=== PATIENT | female | born 1990 | race Caucasian/White ===

== ENCOUNTER 2018-06-20 07:12 | Day surgery (SDC) | payer OTHER ==
[~2018-06-20 07:12] MED LIST: CEFAZOLIN 1 GM INJ; FENTAnyl 50 MCG/ML VIAL
[2018-06-20] MEDS ORDERED: LACTATED RINGER'S 1,000 ML IV (08:00)
[2018-06-20] MEDS ORDERED: FENTAnyl 50 MCG/ML VIAL (08:41)
[2018-06-20] MEDS ORDERED: MIDAZOLAM 1 MG/ML 2 ML INJ (08:41)
[2018-06-20] MEDS ORDERED: LIDOCAINE 2% (SDV) 5 ML INJ (08:42)
[2018-06-20] MEDS ORDERED: METOCLOPRAMIDE 10 MG INJ (08:42)
[2018-06-20] MEDS ORDERED: PROPOFOL 20 ML (08:42)
[2018-06-20] MEDS ORDERED: ROPIVACAINE 0.5 % 30 ML VIAL (08:49)
[2018-06-20] MEDS ORDERED: SUCCINYLCHOLINE CHLORIDE 100 MG/5 ML SYG IV (09:45)
[2018-06-20] MEDS ORDERED: ROCURONIUM 50 MG INJ (09:45)
[2018-06-20] MEDS ORDERED: SUGAMMADEX SODIUM 200 MG/2 ML VIAL IV (09:46)
[2018-06-20] MEDS: BUPIVACAINE 0.25%/EPI (SDV) 30 ML INJ (10:14)
[2018-06-20] MEDS ORDERED: morphine 2 MG INJ IV (10:30)
[2018-06-20] MEDS ORDERED: ONDANSETRON 4 MG INJ IV ×2 (10:30→11:00)
[2018-06-20] MEDS ORDERED: HYDROmorphONE 1 MG/5 ML IV SYRINGE IV ×3 (10:38→11:00)
[2018-06-20] MEDS ORDERED: LABETALOL HCL 20MG INJ IV (11:00)
[2018-06-20] MEDS ORDERED: MEPERIDINE 25 MG INJ IV (11:00)
[2018-06-20] MEDS ORDERED: hydrALAzine 20 MG INJ IV (11:00)
[2018-06-20] MEDS ORDERED: FENTAnyl 50 MCG/ML VIAL IV ×2 (11:00)
[2018-06-20] MEDS ORDERED: IPRATROPIUM (NEB) 0.5 MG/2.5 ML AMP HHN (11:00)
[2018-06-20] MEDS ORDERED: DIPHENHYDRAMINE 50 MG INJ IV (11:00)
[2018-06-20] MEDS: HYDROmorphONE 1 MG/5 ML IV SYRINGE IV (11:15)
[2018-06-20] MEDS: OXYCODONE/ACETAMINOPHEN (5/325) TAB PO ×2 (11:25→12:11)
[2018-06-20] MEDS: KETOROLAC 30 MG INJ IV (11:26)
== END 2018-06-20 13:15 | disposition home or self-care (01) ==
LOC: SDS 07:12
DX: K80.10 Calculus of gallbladder with chronic cholecystitis without obstruction (principal); E66.01 Morbid (severe) obesity due to excess calories; Z68.42 Body mass index [BMI] 45.0-49.9, adult; I10 Essential (primary) hypertension; E11.9 Type 2 diabetes mellitus without complications; G47.30 Sleep apnea, unspecified
CPT/HCPCS: 47562; 82962; 88304

== ENCOUNTER 2018-06-23 22:01 | Inpatient (IN) | payer OTHER ==
[2018-06-23] MEDS: ACETAMINOPHEN 325 MG TAB PO (23:08)
[2018-06-23] MEDS: SOD CHLORIDE 0.9% 1,000 ML IV (23:08)
[2018-06-23] MEDS: morphine 4 MG/ML VIAL IV (23:08)
[2018-06-23] MEDS: ONDANSETRON 4 MG INJ IV (23:08)
[2018-06-23 23:17] LABS: ADD MAN DIFF? NO
[2018-06-23 23:19] LABS: ABNORMAL IP MESSAGE 1; BASOPHILS % 0.3 % (0.0-2.0); EOSINOPHILS # 0.1 10^3/ul (0.0-0.5); EOSINOPHILS % 1.1 % (0.0-7.0); IMMATURE GRANS #M 0.18 10^3/ul; IMMATURE GRANS % (M) 1.9 %; LYMPHOCYTES # 2.2 10^3/ul (0.8-2.9); LYMPHOCYTES % 23.2 % (15.0-51.0); MEAN CORPUSCULAR HEMOGLOBIN 29.2 pg (29.0-33.0); MEAN CORPUSCULAR VOLUME 91.3 fl (82.0-101.0); MEAN PLATELET VOLUME 9.9 fl (7.4-10.4); MONOCYTE # 0.6 10^3/ul (0.3-0.9); NEUTROPHIL # 6.5 10^3/ul (1.6-7.5); NEUTROPHILS % 67.5 % (39.0-77.0); NUCLEATED RED BLOOD CELLS% 0.2 /100WBC (0.0-0.0); PLATELET COUNT 266 10^3/UL (140-415); RED BLOOD COUNT 2.19 10^6/ul (4.20-5.40); RED CELL DISTRIBUTION WIDTH 13.5 % (11.5-14.5)
[2018-06-23 23:19] LABS: WHITE BLOOD COUNT 9.7 10^3/ul (4.8-10.8)
[2018-06-23 23:26] LABS: HEMOGLOBIN 6.4 g/dl (12.0-16.0); POSITIVE DIFF @See below
[2018-06-23 23:30] LABS: ADD UMIC YES; UR ASCORBIC ACID NEGATIVE (NEGATIVE); UR BACTERIA MODERATE /HPF (NONE SEEN); UR BILIRUBIN (Dip) NEGATIVE (NEGATIVE); UR BLOOD (Dip) 2+ mg/dL (NEGATIVE); UR CLARITY SLIGHTLY CLOUDY (CLEAR); UR COLOR YELLOW (YELLOW); UR GLUCOSE (Dip) NEGATIVE (NEGATIVE); UR KETONES (Dip) NEGATIVE (NEGATIVE); UR LEUKOCYTE ESTERASE (Dip) TRACE Leu/ul (NEGATIVE); UR MUCUS FEW /HPF (NONE SEEN); UR NITRITE (Dip) NEGATIVE (NEGATIVE); UR RBC 4 /HPF (0-5); UR SQUAMOUS EPITHELIAL CELL FEW /HPF (FEW); UR TOTAL PROTEIN (Dip) NEGATIVE (NEGATIVE); UR UROBILINOGEN (Dip) NEGATIVE (NEGATIVE); UR WBC 8 /HPF (0-5)
[2018-06-23 23:45] LABS: ALANINE AMINOTRANSFERASE 38 IU/L (13-69); ALBUMIN 3.3 g/dl (3.3-4.9); ALBUMIN/GLOBULIN RATIO 1.03; ALKALINE PHOSPHATASE 69 IU/L (42-121); ANION GAP 11 (8-16); ASPARTATE AMINO TRANSFERASE 31 IU/L (15-46); BILIRUBIN,INDIRECT 0.5 mg/dl (0-1.1); BILIRUBIN,TOTAL 0.5 mg/dl (0.2-1.3); BLOOD UREA NITROGEN 13 mg/dl (7-20); CALCIUM 8.8 mg/dl (8.4-10.2); CARBON DIOXIDE 25 mmol/L (21-31); CHLORIDE 104 mmol/L (97-110); GLUCOSE 101 mg/dl (70-220); INR 1.06; LIPASE 123 U/L (23-300); PARTIAL THROMBOPLASTIN TIME 25.8 Sec (25.0-35.0); POTASSIUM 3.7 mmol/L (3.5-5.1); PROTIME 13.9 Sec (11.9-14.9); PT RATIO 1.1; SODIUM 136 mmol/L (135-144); TOTAL PROTEIN 6.5 g/dl (6.1-8.1)
[2018-06-24] MEDS: morphine 2 MG INJ IV (00:07)
[2018-06-24 00:18] LABS: LACTIC ACID 2.6 mmol/L (0.5-2.0)
[2018-06-24] MEDS: SOD CHLORIDE 0.9% 100 ML (00:39)
[2018-06-24] MEDS: IOHEXOL 300MG/ML 150 ML BTL (00:39)
[2018-06-24] MEDS: SODIUM CHLORIDE 0.9% 1L BAG IV* (00:55)
[2018-06-24] MEDS: LEVOFLOXACIN 750MG/D5W (PMX) 150 ML IVPB (00:55)
[2018-06-24] MEDS: SOD CHLORIDE 0.9% 1,000 ML IV ×2 (01:10→13:39)
[2018-06-24 01:22] LABS: LACTIC ACID 1.5 mmol/L (0.5-2.0)
[2018-06-24] MEDS ORDERED: DOCUSATE SODIUM 100 MG CAP PO (01:30)
[2018-06-24] MEDS ORDERED: NACL 0.9% 3 ML SYG IV (01:30)
[2018-06-24] MEDS ORDERED: BISACODYL (EC) 5 MG TAB PO (01:30)
[2018-06-24] MEDS ORDERED: morphine 2 MG INJ IV (01:30)
[2018-06-24] MEDS: MEROPENEM 1 GM/50ML(PMX) 50 ML IVPB ×3 (02:30→13:52)
[2018-06-24] MEDS: VANCOMYCIN 1 GM (PMX) 250 ML IVPB (02:41)
[2018-06-24 03:57] LABS: LACTIC ACID 1.4 mmol/L (0.5-2.0)
[2018-06-24] MEDS ORDERED: PIPER-TAZO 3.375 GM IV (PMX) 100 ML IVPB (06:00)
[2018-06-24 06:24] LABS: ABNORMAL IP MESSAGE 1; HEMATOCRIT 18.5 % (37.0-47.0); IMMATURE GRANS #M 0.12 10^3/ul; IMMATURE GRANS % (M) 1.8 %; MEAN CORPUSCULAR HEMOGLOBIN 29.6 pg (29.0-33.0); MEAN CORPUSCULAR HGB CONC 31.9 g/dl (32.0-37.0); MEAN PLATELET VOLUME 9.5 fl (7.4-10.4); PLATELET COUNT 212 10^3/UL (140-415); RED BLOOD COUNT 1.99 10^6/ul (4.20-5.40); RED CELL DISTRIBUTION WIDTH 13.8 % (11.5-14.5)
[2018-06-24 06:24] LABS: WHITE BLOOD COUNT 6.5 10^3/ul (4.8-10.8)
[2018-06-24 06:29] LABS: POSITIVE DIFF @See below
[2018-06-24 06:32] LABS: HEMOGLOBIN 5.9 g/dl (12.0-16.0)
[2018-06-24 06:33] LABS: ADD MAN DIFF? YES; PATH REVIEW? YES
[2018-06-24 07:03] LABS: ALANINE AMINOTRANSFERASE 62 IU/L (13-69); ALBUMIN 2.6 g/dl (3.3-4.9); ALBUMIN/GLOBULIN RATIO 1.08; ALKALINE PHOSPHATASE 67 IU/L (42-121); ANION GAP 8 (8-16); ASPARTATE AMINO TRANSFERASE 87 IU/L (15-46); BILIRUBIN,INDIRECT 0.4 mg/dl (0-1.1); BILIRUBIN,TOTAL 0.4 mg/dl (0.2-1.3); BLOOD UREA NITROGEN 9 mg/dl (7-20); CALCIUM 7.7 mg/dl (8.4-10.2); CARBON DIOXIDE 23 mmol/L (21-31); CHLORIDE 113 mmol/L (97-110); CREATININE 0.69 mg/dl (0.44-1.00); GLUCOSE 88 mg/dl (70-220); POTASSIUM 3.6 mmol/L (3.5-5.1); SODIUM 140 mmol/L (135-144)
[2018-06-24 08:08] LABS: ANISOCYTOSIS 2+ (0-0); BAND NEUTROPHILS #M 0.1 10^3/ul (0.0-0.6); BAND NEUTROPHILS % (M) 2 % (0-4); EOSINOPHILS % (M) 1 % (0-7); LYMPHOCYTES #M 1.5 10^3/ul (0.8-2.9); LYMPHOCYTES % (M) 24 % (15-51); MICROCYTOSIS 1+ (0-0); MONOCYTE #M 0.1 10^3/ul (0.3-0.9); MONOCYTES % (M) 3 % (0-11); MYELOCYTES % (M) 1 % (0-0); PLATELET ESTIMATE NORMAL; POLYCHROMASIA 1+ (0-0); REACTIVE LYMPHOCYTES% (M) 1 % (0-0); SEG NEUT #M 4.4 10^3/ul (1.6-7.5); SEGMENTED NEUTROPHILS (M) % 68 % (39-77); SMUDGE%M 1 % (0-0)
[2018-06-24] MEDS: ONDANSETRON 4 MG INJ IV (09:06)
[2018-06-24 11:32] LABS: LACTIC ACID 1.1 mmol/L (0.5-2.0)
[2018-06-24] MEDS ORDERED: GLUCAGON 1 MG INJ IM (12:00)
[2018-06-24] MEDS ORDERED: DEXTROSE 50% 50 ML SYRINGE IV ×2 (12:00)
[2018-06-24] MEDS ORDERED: GLUCOSE GEL 15 GRAM TUBE PO ×2 (12:00)
[2018-06-24] MEDS ORDERED: GLUCOSE GEL 15 GRAM TUBE BUCCAL (12:00)
[2018-06-24] MEDS: FAMOTIDINE 20 MG INJ IV (13:11)
[2018-06-24] MEDS: METHYLPREDNISOLONE 125 MG INJ IV (13:11)
[2018-06-24] MEDS: DIPHENHYDRAMINE 50 MG INJ IM (13:22)
[2018-06-24] MEDS: INSULIN ASPART [NOVOLOG] 3 ML PEN SC ×3 (13:35→20:08)
[2018-06-24 13:49] LABS: ADD UMIC YES; UR ASCORBIC ACID NEGATIVE (NEGATIVE); UR BACTERIA FEW /HPF (NONE SEEN); UR BILIRUBIN (Dip) NEGATIVE (NEGATIVE); UR BLOOD (Dip) 2+ mg/dL (NEGATIVE); UR CLARITY CLEAR (CLEAR); UR COLOR STRAW (YELLOW); UR GLUCOSE (Dip) NEGATIVE (NEGATIVE); UR KETONES (Dip) NEGATIVE (NEGATIVE); UR LEUKOCYTE ESTERASE (Dip) NEGATIVE Leu/ul (NEGATIVE); UR NITRITE (Dip) NEGATIVE (NEGATIVE); UR RBC 1 /HPF (0-5); UR SPECIFIC GRAVITY (Dip) 1.015 (1.003-1.030); UR TOTAL PROTEIN (Dip) NEGATIVE (NEGATIVE); UR UROBILINOGEN (Dip) NEGATIVE (NEGATIVE); UR WBC 1 /HPF (0-5)
[2018-06-24 14:36] LABS: ADD MAN DIFF? NO
[2018-06-24 14:37] LABS: BASOPHILS % 0.3 % (0.0-2.0); EOSINOPHILS # 0.2 10^3/ul (0.0-0.5); EOSINOPHILS % 2.1 % (0.0-7.0); HEMATOCRIT 23.4 % (37.0-47.0); HEMOGLOBIN 7.6 g/dl (12.0-16.0); IMMATURE GRANS #M 0.09 10^3/ul; IMMATURE GRANS % (M) 1.2 %; LYMPHOCYTES # 0.7 10^3/ul (0.8-2.9); LYMPHOCYTES % 8.9 % (15.0-51.0); MEAN CORPUSCULAR HEMOGLOBIN 29.1 pg (29.0-33.0); MEAN CORPUSCULAR HGB CONC 32.5 g/dl (32.0-37.0); MEAN CORPUSCULAR VOLUME 89.7 fl (82.0-101.0); MEAN PLATELET VOLUME 9.6 fl (7.4-10.4); MONOCYTE # 0.4 10^3/ul (0.3-0.9); NEUTROPHIL # 6.3 10^3/ul (1.6-7.5); NEUTROPHILS % 82.5 % (39.0-77.0); PLATELET COUNT 246 10^3/UL (140-415); RED BLOOD COUNT 2.61 10^6/ul (4.20-5.40); RED CELL DISTRIBUTION WIDTH 14.2 % (11.5-14.5)
[2018-06-24 14:37] LABS: WHITE BLOOD COUNT 7.6 10^3/ul (4.8-10.8)
[2018-06-24 19:49] LABS: ADD MAN DIFF? NO
[2018-06-24 19:51] LABS: ABNORMAL IP MESSAGE 1; BASOPHILS % 0.2 % (0.0-2.0); EOSINOPHILS % 0.1 % (0.0-7.0); HEMATOCRIT 26.5 % (37.0-47.0); HEMOGLOBIN 8.8 g/dl (12.0-16.0); IMMATURE GRANS #M 0.29 10^3/ul; IMMATURE GRANS % (M) 2.9 %; LYMPHOCYTES # 0.6 10^3/ul (0.8-2.9); LYMPHOCYTES % 5.6 % (15.0-51.0); MEAN CORPUSCULAR HEMOGLOBIN 29.6 pg (29.0-33.0); MEAN CORPUSCULAR HGB CONC 33.2 g/dl (32.0-37.0); MEAN CORPUSCULAR VOLUME 89.2 fl (82.0-101.0); MEAN PLATELET VOLUME 9.3 fl (7.4-10.4); MONOCYTE # 0.2 10^3/ul (0.3-0.9); NEUTROPHIL # 9.1 10^3/ul (1.6-7.5); NEUTROPHILS % 89.2 % (39.0-77.0); PLATELET COUNT 307 10^3/UL (140-415); RED BLOOD COUNT 2.97 10^6/ul (4.20-5.40); RED CELL DISTRIBUTION WIDTH 14.2 % (11.5-14.5)
[2018-06-24 19:51] LABS: WHITE BLOOD COUNT 10.2 10^3/ul (4.8-10.8)
[2018-06-24 19:52] LABS: POSITIVE DIFF @See below
[2018-06-24] MEDS: ACETAMINOPHEN 325 MG TAB PO (20:04)
[2018-06-24 21:58] LABS: IMMEDIATE SPIN CROSSMATCH 1 3
[2018-06-24 22:54] LABS: POST-TRANSFUSION BILIRUBIN 0.6 mg/dl
[2018-06-24 22:54] LABS: PRETRANSFUSION BILIRUBIN 0.3 mg/dl
[2018-06-25] MEDS: ACCU-CHEK XX (01:11)
[2018-06-25] MEDS: LEVOFLOXACIN 500MG/D5W (PMX) 100 ML IVPB (01:46)
[2018-06-25] MEDS: ACETAMINOPHEN 325 MG TAB PO ×4 (01:47→20:53)
[2018-06-25] MEDS: SOD CHLORIDE 0.9% 1,000 ML IV ×2 (02:10→08:17)
[2018-06-25 06:44] LABS: ADD MAN DIFF? NO
[2018-06-25] MEDS: ONDANSETRON 4 MG INJ IV (06:45)
[2018-06-25 06:49] LABS: BASOPHILS % 0.1 % (0.0-2.0); HEMATOCRIT 28.1 % (37.0-47.0); HEMOGLOBIN 9.3 g/dl (12.0-16.0); IMMATURE GRANS #M 0.24 10^3/ul; IMMATURE GRANS % (M) 2.5 %; MEAN CORPUSCULAR HEMOGLOBIN 29.5 pg (29.0-33.0); MEAN CORPUSCULAR HGB CONC 33.1 g/dl (32.0-37.0); MEAN CORPUSCULAR VOLUME 89.2 fl (82.0-101.0); MEAN PLATELET VOLUME 9.4 fl (7.4-10.4); MONOCYTE # 0.5 10^3/ul (0.3-0.9); MONOCYTES % 5.3 % (0.0-11.0); NEUTROPHILS % 82.1 % (39.0-77.0); PLATELET COUNT 291 10^3/UL (140-415); RED BLOOD COUNT 3.15 10^6/ul (4.20-5.40); RED CELL DISTRIBUTION WIDTH 14.3 % (11.5-14.5)
[2018-06-25 06:49] LABS: WHITE BLOOD COUNT 9.7 10^3/ul (4.8-10.8)
[2018-06-25 07:18] LABS: ANION GAP 13 (8-16); BLOOD UREA NITROGEN 8 mg/dl (7-20); CALCIUM 8.8 mg/dl (8.4-10.2); CARBON DIOXIDE 24 mmol/L (21-31); CHLORIDE 109 mmol/L (97-110); CREATININE 0.66 mg/dl (0.44-1.00); GLUCOSE 108 mg/dl (70-220); MAGNESIUM 2.3 mg/dl (1.7-2.5); PHOSPHORUS 4.6 mg/dl (2.5-4.9); POTASSIUM 3.8 mmol/L (3.5-5.1); SODIUM 142 mmol/L (135-144)
[2018-06-25] MEDS: INSULIN ASPART [NOVOLOG] 3 ML PEN SC ×4 (07:55→20:52)
[2018-06-25 18:25] LABS: HEMATOCRIT 31.9 % (37.0-47.0); HEMOGLOBIN 10.7 g/dl (12.0-16.0)
[2018-06-26] MEDS: LEVOFLOXACIN 500MG/D5W (PMX) 100 ML IVPB (01:14)
[2018-06-26] MEDS: ACCU-CHEK XX (01:16)
[2018-06-26] MEDS: SOD CHLORIDE 0.9% 1,000 ML IV ×2 (01:16→03:10)
[2018-06-26 06:46] LABS: ADD MAN DIFF? NO
[2018-06-26 06:50] LABS: BASOPHILS % 0.3 % (0.0-2.0); EOSINOPHILS # 0.1 10^3/ul (0.0-0.5); EOSINOPHILS % 1.2 % (0.0-7.0); HEMATOCRIT 28.7 % (37.0-47.0); HEMOGLOBIN 9.2 g/dl (12.0-16.0); IMMATURE GRANS #M 0.17 10^3/ul; IMMATURE GRANS % (M) 1.7 %; LYMPHOCYTES # 1.2 10^3/ul (0.8-2.9); LYMPHOCYTES % 11.3 % (15.0-51.0); MEAN CORPUSCULAR HEMOGLOBIN 28.6 pg (29.0-33.0); MEAN CORPUSCULAR HGB CONC 32.1 g/dl (32.0-37.0); MEAN CORPUSCULAR VOLUME 89.1 fl (82.0-101.0); MEAN PLATELET VOLUME 9.1 fl (7.4-10.4); MONOCYTE # 0.8 10^3/ul (0.3-0.9); MONOCYTES % 7.5 % (0.0-11.0); PLATELET COUNT 284 10^3/UL (140-415); RED BLOOD COUNT 3.22 10^6/ul (4.20-5.40); RED CELL DISTRIBUTION WIDTH 14.9 % (11.5-14.5)
[2018-06-26 06:50] LABS: WHITE BLOOD COUNT 10.2 10^3/ul (4.8-10.8)
[2018-06-26] MEDS: INSULIN ASPART [NOVOLOG] 3 ML PEN SC ×4 (07:42→20:23)
[2018-06-26 07:44] LABS: ANION GAP 12 (8-16); BLOOD UREA NITROGEN 14 mg/dl (7-20); CALCIUM 8.4 mg/dl (8.4-10.2); CARBON DIOXIDE 23 mmol/L (21-31); CHLORIDE 109 mmol/L (97-110); CREATININE 0.73 mg/dl (0.44-1.00); GLUCOSE 97 mg/dl (70-220); MAGNESIUM 1.8 mg/dl (1.7-2.5); PHOSPHORUS 4.3 mg/dl (2.5-4.9); POTASSIUM 3.4 mmol/L (3.5-5.1); SODIUM 141 mmol/L (135-144)
[2018-06-26] MEDS: POTASSIUM CHLORIDE 20 MEQ POWDER FOR ORAL SOLN PO (11:51)
[2018-06-27] MEDS: ACCU-CHEK XX (00:55)
[2018-06-27 06:52] LABS: ADD MAN DIFF? NO
[2018-06-27 07:03] LABS: WHITE BLOOD COUNT 10.1 10^3/ul (4.8-10.8)
[2018-06-27 07:03] LABS: BASOPHILS % 0.4 % (0.0-2.0); EOSINOPHILS # 0.2 10^3/ul (0.0-0.5); EOSINOPHILS % 2.2 % (0.0-7.0); HEMATOCRIT 29.9 % (37.0-47.0); HEMOGLOBIN 9.7 g/dl (12.0-16.0); LYMPHOCYTES # 1.6 10^3/ul (0.8-2.9); LYMPHOCYTES % 15.9 % (15.0-51.0); MEAN CORPUSCULAR HEMOGLOBIN 29.2 pg (29.0-33.0); MEAN CORPUSCULAR HGB CONC 32.4 g/dl (32.0-37.0); MEAN CORPUSCULAR VOLUME 90.1 fl (82.0-101.0); MEAN PLATELET VOLUME 9.1 fl (7.4-10.4); MONOCYTE # 0.7 10^3/ul (0.3-0.9); MONOCYTES % 6.7 % (0.0-11.0); NEUTROPHIL # 7.3 10^3/ul (1.6-7.5); NEUTROPHILS % 72.8 % (39.0-77.0); PLATELET COUNT 314 10^3/UL (140-415); RED BLOOD COUNT 3.32 10^6/ul (4.20-5.40); RED CELL DISTRIBUTION WIDTH 14.4 % (11.5-14.5)
[2018-06-27 07:38] LABS: ANION GAP 11 (8-16); BLOOD UREA NITROGEN 10 mg/dl (7-20); CALCIUM 8.9 mg/dl (8.4-10.2); CARBON DIOXIDE 25 mmol/L (21-31); CHLORIDE 107 mmol/L (97-110); CREATININE 0.68 mg/dl (0.44-1.00); GLUCOSE 83 mg/dl (70-220); PHOSPHORUS 4.5 mg/dl (2.5-4.9); POTASSIUM 3.4 mmol/L (3.5-5.1); SODIUM 140 mmol/L (135-144)
[2018-06-27] MEDS: INSULIN ASPART [NOVOLOG] 3 ML PEN SC ×2 (07:39→11:49)
[2018-06-27] MEDS: POTASSIUM CHLORIDE 20 MEQ POWDER FOR ORAL SOLN PO (10:07)
[2018-06-27] MEDS: LEVOFLOXACIN 500 MG TAB PO (10:26)
[2018-06-27] MEDS: ACETAMINOPHEN 325 MG TAB PO (10:34)
[2018-06-27] MEDS ORDERED: LEVOFLOXACIN 500 MG TAB PO (21:00)
[2018-06-28] MEDS ORDERED: LEVOFLOXACIN 500 MG TAB PO (06:00)
== END 2018-06-27 12:05 | disposition home or self-care (01) | DRG 919 ==
LOC: FTE 22:01 → TEL 06-24 01:09
PROVIDERS: Family Medicine
PROC: 30233N1 Transfusion of Nonautologous Red Blood Cells into Peripheral Vein, Percutaneous Approach (ICD-10-PCS; principal; 2018-06-24)
DX: K91.840 Postprocedural hemorrhage of a digestive system organ or structure following a digestive system procedure (principal); A41.9 Sepsis, unspecified organism; R65.20 Severe sepsis without septic shock; N39.0 Urinary tract infection, site not specified; Z68.42 Body mass index [BMI] 45.0-49.9, adult; D62 Acute posthemorrhagic anemia; T80.92XA Unspecified transfusion reaction, initial encounter; E66.01 Morbid (severe) obesity due to excess calories; T39.015A Adverse effect of aspirin, initial encounter; E28.2 Polycystic ovarian syndrome; D64.9 Anemia, unspecified; Y84.8 Other medical procedures as the cause of abnormal reaction of the patient, or of later complication, without mention of misadventure at the time of the procedure; Y92.019 Unspecified place in single-family (private) house as the place of occurrence of the external cause; Z90.49 Acquired absence of other specified parts of digestive tract; Z79.4 Long term (current) use of insulin; Z79.84 Long term (current) use of oral hypoglycemic drugs; Z79.82 Long term (current) use of aspirin
CPT/HCPCS: 36415; 36430; 74177; 80048; 80053; 81001; 81025; 82962; 83036; 83605; 83690; 83735; 84100; 84443; 85014; 85018; 85025; 85610; 85730; 86078; 86850; 86900; 86901; 86920; 87040; 96374; 96375; 99285-25